=== PATIENT | female | born 1955 | race Caucasian/White ===

== ENCOUNTER → 2017-04-16 | Outpatient (CLI) | payer OTHER | LOC: BRMIMAGING 15:25 | PROVIDERS: ATTEND Internal Medicine Hematology & Oncology | DX: Z13.820 Encounter for screening for osteoporosis (principal); M85.80 Other specified disorders of bone density and structure, unspecified site; Z85.3 Personal history of malignant neoplasm of breast ==

== ENCOUNTER → 2017-04-17 | Outpatient (CLI) | payer OTHER | LOC: FIMAGING 09:04 | PROVIDERS: ATTEND Internal Medicine Hematology & Oncology | DX: Z12.31 Encounter for screening mammogram for malignant neoplasm of breast (principal); Z85.3 Personal history of malignant neoplasm of breast; Z92.3 Personal history of irradiation | CPT/HCPCS: G0202 ==

== ENCOUNTER 2017-12-20 08:19 | Emergency (ER) | payer OTHER ==
[2017-12-20 08:24] VITALS: TEMP 98.6
[2017-12-20] MEDS ORDERED: ONDANSETRON 4 MG/2 ML VIAL IVP ONE (08:34)
[2017-12-20] MEDS ORDERED: HYDROmorphONE/DILAUDID 1 MG/ML INJ IVP ONE ×2 (08:34→10:02)
[2017-12-20] MEDS ORDERED: NS 1,000 ML IV ONE (08:34)
[2017-12-20 08:42] LABS: PLATELET COUNT 220 10^3/uL (150-400)
[2017-12-20] MEDS ORDERED: IOPAMIDOL (ISOVUE-300) 100 ML BTL ONE (09:25)
[2017-12-20] MEDS ORDERED: KETOROLAC 15 MG/1 ML SDV IVP ONE (11:01)
--- NOTE | 2017-12-20 11:12 | EDPHY ---
H & P Stated Complaint: rlq abd pain n/v - Personal History Current Tetanus/Diphtheria Vaccine: No - Medical/Surgical History Hx Asthma: No Hx Chronic Respiratory Disease: No Hx Diabetes: No Hx Cardiac Disease: No Hx Renal Disease: No Hx Cirrhosis: No Hx Alcoholism: No Hx HIV/AIDS: No Hx Splenectomy or Spleen Trauma: No Other PMH: breast cancer - Social History Smoking Status: Never smoked Time Seen by Provider: 12/20/17 08:25 HPI/ROS: Chief complaint: Abdominal pain History of present illness: This is a 62-year-old female who presents to the emergency department for evaluation of abdominal pain. Patient reports the onset of symptoms earlier this morning. Symptoms awoke her from sleep. She describes a sharp pain on the right side of her abdomen most noticeable in the right lower aspect. The pain does radiate into the back. She has had associated nausea and vomiting. No reported precipitating factors. No alleviating or aggravating factors. No other associated signs or symptoms including no fevers, no urinary symptoms, no diarrhea or constipation. Review of systems: A 10 point review of systems was obtained and other than described above was negative (Jack Ku) - Physical Exam Exam: General Appearance: Alert, nontoxic. Eyes: Pupils equal and round no pallor or injection. ENT, Mouth: Mucous membranes moist. Respiratory: There are no retractions, lungs are clear to auscultation. Cardiovascular: Regular rate and rhythm. Gastrointestinal: Bowel sounds are normal. Abdomen is soft and nondistended. There is tenderness along the right side of the abdomen. No peritoneal signs. Neurological: Alert and oriented x4. Strength and sensation intact and symmetrical. Skin: Warm and dry, no rashes. Musculoskeletal: Neck is supple non tender. Extremities are symmetrical, full range of motion. Psychiatric: Patient is oriented X 3, there is no agitation. (Jack Ku) Constitutional: Initial Vital Signs Temperature (C) 37 C 12/20/17 08:22 Heart Rate 80 12/20/17 08:22 Respiratory Rate 16 12/20/17 08:22 Blood Pressure 143/66 H 12/20/17 08:22 O2 Sat (%) 95 12/20/17 08:22 O2 Delivery Mode Room Air O2 (L/minute) 2 Allergies/Adverse Reactions: gluten Allergy (Verified 12/20/17 08:45) Home Medications: Medication Instructions Recorded Benicar 12/20/17 Hydrocodone/APAP 5/325 [[place] 1 tab PO Q6H #10 tab 12/20/17 5/325 (*)] Ondansetron Odt [Zofran Odt 4 mg 4 mg PO Q4 #6 tab 12/20/17 (*)] Medical Decision Making - Diagnostics Imaging: Discussed imaging studies w/ medical dosimetrist Radiologist ED Course/Re-evaluation: Patient seen under the supervision of my secondary supervising physician Dr. Kayla Velasquez. Patient presents to the emergency department for right-sided abdominal and back pain. She is nontoxic. Vital signs are stable. She does appear to have a ureteral lithiasis that has nearly passed. Significant hydronephrosis with possible calyceal rupture. No evidence of infection. I have consulted with on-call Urology who is comfortable with patient following up on an outpatient basis. Home care is discussed with patient including pain management and straining the urine for the stone. Return precautions are given. The patient voiced understanding and agreed with plan. (Jack Ku) The patient was evaluated and managed by the physician sales assistants and salespersons. I have reviewed this chart and I agree with the findings and plan of care as documented , as indicated by my signature. I am the secondary supervising physician. ( Kayla Velasquez) Differential Diagnosis: Included but not limited to appendicitis, colitis, urinary tract disease, bowel obstruction (Jack Ku) - Data Points Laboratory Results: Laboratory Results 12/20/17 08:36 12/20/17 08:36 Medications Given: Discontinued Medications Hydromorphone HCl (Dilaudid) 0.5 mg IVP EDNOW ONE Stop: 12/20/17 08:35 Last Admin: 12/20/17 08:42 Dose: 0.5 mg Hydromorphone HCl (Dilaudid) 0.5 mg IVP EDNOW ONE Stop: 12/20/17 10:03 Last Admin: 12/20/17 10:06 Dose: 0.5 mg Sodium Chloride (Ns) 1,000 mls @ 0 mls/hr IV EDNOW ONE; Wide Open PRN Reason: Protocol Stop: 12/20/17 08:35 Last Admin: 12/20/17 08:40 Dose: 1,000 mls Ketorolac Tromethamine (Toradol) 15 mg IVP EDNOW ONE Stop: 12/20/17 11:02 Last Admin: 12/20/17 11:10 Dose: 15 mg Ondansetron HCl (Zofran) 4 mg IVP EDNOW ONE Stop: 12/20/17 08:35 Last Admin: 12/20/17 08:42 Dose: 4 mg Departure - Departure Disposition: Home, Routine, Self-Care Clinical Impression: Kidney stone Condition: Good Instructions: Kidney Stones (ED) Additional Instructions: Follow-up with Urology for further evaluation and care In regards to pain control see the following: You can use ibuprofen as directed as needed for pain for the next 1-2 days In addition You have been prescribed [[place]] for pain. [[place]] contains Tylenol , do not take extra Tylenol/acetaminophen/Apap with it. It is sedating. Use Zofran as needed for any nausea and vomiting If symptoms worsen or new symptoms develop return to the emergency room for recheck Referrals: HUGO QUEVEDO [Primary Care Provider] - As per Instructions Jose L Rodríguez MD [Medical Doctor] - As per Instructions Prescriptions: Hydrocodone/APAP 5/325 [[place] 5/325 (*)] 1 tab PO Q6H #10 tab Ondansetron Odt [Zofran Odt 4 mg (*)] 4 mg PO Q4 #6 tab
[2017-12-20 12:15] VITALS: BP 126/83; PULSE 16; RESP 75; O2SAT 97
== END 2017-12-20 12:10 | disposition home or self-care (01) ==
DX: N20.0 Calculus of kidney (principal); E86.9 Volume depletion, unspecified; Z85.3 Personal history of malignant neoplasm of breast
CPT/HCPCS: 96374; J1170; J1885; J2405; Q9967

== ENCOUNTER → 2018-01-12 | Outpatient (CLI) | payer OTHER | LOC: FIMAGING 08:29 | PROVIDERS: ATTEND Urology | DX: N20.1 Calculus of ureter (principal); K59.00 Constipation, unspecified; M51.36 Other intervertebral disc degeneration, lumbar region; Z96.642 Presence of left artificial hip joint ==